=== PATIENT | male | born 1980 | race Caucasian/White ===

== ENCOUNTER 2018-02-07 18:12 | Inpatient (IN) | payer OTHER ==
[~2018-02-07] VITALS: Ht 160 cm; Wt 93.0 kg
[2018-02-07] MEDS ORDERED: SODIUM CHLORIDE 0.9% 1,000 ML IV ONE (18:27)
[2018-02-07] MEDS ORDERED: ADENOSINE 3 MG/ML 2ML VIAL IV ONE ×2 (18:30→18:31)
[2018-02-07] MEDS ORDERED: ASPIRIN 325MG TABLET PO ONE (18:30)
[2018-02-07 18:50] LABS: BASOPHILS % 0.5 % (0.0-2.0); EOSINOPHILS % 2.5 % (0.0-5.0); HEMOGLOBIN. 16.7 g/dL (14.0-18.0); LYMPHOCYTES % 47.1 % (20.0-50.0); MEAN CORPUSCULAR HEMOGLOBIN 29.5 pg (28.0-32.0); MEAN CORPUSCULAR VOLUME 86.6 fL (80.0-94.0); MONOCYTES % 8.5 % (2.0-8.0); NEUTROPHILS % 41.4 % (40.0-76.0); PLATELET 383 x1000/uL (130-400); RED BLOOD CELL COUNT 5.67 mill/uL (4.7-6.1); RED CELL DISTRIBUTION WIDTH 13.7 % (11.6-14.6)
[2018-02-07 19:01] LABS: PARTIAL THROMBOPLASTIN TIME 25.6 sec (23.4-31.0); PROTHROMBIN TIME 10.1 sec (9.4-11.6)
[2018-02-07 19:06] LABS: CHLORIDE 106 mEq/L (98-107)
[2018-02-07] MEDS ORDERED: AZITHROMYCIN 500 MG in DEXT 5% WATER 250 ML IV ONE (19:15)
[2018-02-07] MEDS ORDERED: CEFTRIAXONE 2 G PREMIX 50 ML IV ONE (19:15)
[2018-02-07 19:45] LABS: *AMPHETAMINES SCREEN URINE NEGATIVE (NEGATIVE); *BARBITURATES SCREEN URINE NEGATIVE (NEGATIVE); *BENZODIAZEPINES SCREEN URINE NEGATIVE (NEGATIVE); *COCAINE SCREEN URINE NEGATIVE (NEGATIVE); CANNABINOID URINE SCREEN NEGATIVE (NEGATIVE); METHADONE URINE SCREEN NEGATIVE (NEGATIVE); OPIATES URINE SCREEN NEGATIVE (NEGATIVE); PHENCYCLIDINE URINE SCREEN NEGATIVE (NEGATIVE)
[2018-02-07] MEDS ORDERED: AZITHROMYCIN 500 MG in DEXT 5% WATER 250 ML IV NR (20:00)
[2018-02-07] MEDS ORDERED: AZITHROMYCIN 500 MG in SODIUM CHLORIDE 0.9% 250 ML IV NR (20:00)
[2018-02-07 23:44] VITALS: BP 142/97
[2018-02-08] VITALS (7 sets, daily range): BP systolic 142–170; BP diastolic 97–115
[2018-02-08] MEDS ORDERED: IRBE300T18 PO (00:07)
[2018-02-08] MEDS ORDERED: ATEN50TA PO (00:07)
[2018-02-08] MEDS ORDERED: ALPR0.25 PO (00:07)
[2018-02-08] MEDS ORDERED: IPRATROPIUM/ALBUTEROL 0.5-3(2.5)MG/3ML NEB HHN PRN (00:45)
[2018-02-08] MEDS: LEVOFLOXACIN 500MG PREMIX 100 ML IV SCH (02:43)
[2018-02-08 06:51] LABS: BASOPHILS % 0.5 % (0.0-2.0); EOSINOPHILS % 2.8 % (0.0-5.0); HEMATOCRIT. 43.3 % (42.0-52.0); HEMOGLOBIN. 14.9 g/dL (14.0-18.0); LYMPHOCYTES % 34.3 % (20.0-50.0); MEAN CORPUSCULAR HEMOGLOBIN 29.6 pg (28.0-32.0); MEAN CORPUSCULAR VOLUME 85.9 fL (80.0-94.0); MEAN PLATELET VOLUME 7.8 fl (7.4-10.4); MONOCYTES % 6.8 % (2.0-8.0); NEUTROPHILS % 55.6 % (40.0-76.0); PLATELET 315 x1000/uL (130-400); RED BLOOD CELL COUNT 5.04 mill/uL (4.7-6.1); RED CELL DISTRIBUTION WIDTH 13.7 % (11.6-14.6)
[2018-02-08 07:23] LABS: CHLORIDE 109 mEq/L (98-107)
[2018-02-08] MEDS ORDERED: METOPROLOL TARTRATE 50MG TABLET PO SCH (09:00)
[2018-02-08] MEDS ORDERED: CLONIDINE 0.1MG TABLET PO PRN (10:45)
[2018-02-08] MEDS ORDERED: METOPROLOL TARTRATE 50MG TABLET PO NR (12:30)
[2018-02-08] MEDS: ACETAMINOPHEN 325MG TABLET PO PRN (16:37)
[2018-02-08 19:11] LABS: CLARITY URINE CLEAR (CLEAR); COLOR URINE YELLOW (YELLOW); KETONES URINE NEGATIVE (NEGATIVE); LEUKOCYTE ESTERASE URINE NEGATIVE (NEGATIVE); NITRITE URINE NEGATIVE (NEGATIVE); OCCULT BLOOD URINE NEGATIVE (NEGATIVE); PROTEIN URINE NEGATIVE (NEGATIVE); SPECIFIC GRAVITY URINE 1.012 (1.005-1.030); UROBILINOGEN URINE 0.2 E.U./dL (0.2-1.0)
[2018-02-08] MEDS ORDERED: LISINOPRIL 20MG TABLET PO SCH (21:00)
[2018-02-08] MEDS: AMLODIPINE 10MG TABLET PO SCH (21:29)
[2018-02-08] MEDS: METOPROLOL TARTRATE 100MG TABLET PO SCH (21:29)
[2018-02-08] MEDS: DILTIAZEM HCL 60MG TABLET PO SCH (21:29)
[2018-02-09] VITALS: BP 123/82
[2018-02-09] MEDS: LEVOFLOXACIN 500MG PREMIX 100 ML IV SCH (03:24)
[2018-02-09 04:00] VITALS: BP 122/65
[2018-02-09] MEDS: DILTIAZEM HCL 60MG TABLET PO SCH ×2 (05:49→13:59)
[2018-02-09 07:34] LABS: CHLORIDE 106 mEq/L (98-107)
[2018-02-09 07:35] VITALS: BP 118/81
[2018-02-09 07:42] LABS: CREATINE KINASE 65 IU/L (39-308); CREATINE KINASE MB FRACTION 0.9 ng/mL (0.5-3.6); HDL CHOLESTEROL 39 mg/dL (40-59); LDL CHOLESTEROL 88 mg/dL (5-100)
[2018-02-09 07:45] LABS: BASOPHILS % 0.4 % (0.0-2.0); EOSINOPHILS % 3.2 % (0.0-5.0); HEMATOCRIT. 46.4 % (42.0-52.0); HEMOGLOBIN. 15.5 g/dL (14.0-18.0); LYMPHOCYTES % 38.2 % (20.0-50.0); MEAN CORPUSCULAR HEMOGLOBIN 28.9 pg (28.0-32.0); MEAN CORPUSCULAR VOLUME 86.3 fL (80.0-94.0); MEAN PLATELET VOLUME 7.9 fl (7.4-10.4); MONOCYTES % 6.3 % (2.0-8.0); NEUTROPHILS % 51.9 % (40.0-76.0); PLATELET 345 x1000/uL (130-400); RED BLOOD CELL COUNT 5.38 mill/uL (4.7-6.1); RED CELL DISTRIBUTION WIDTH 13.6 % (11.6-14.6)
[2018-02-09] MEDS: AMLODIPINE 10MG TABLET PO SCH (08:36)
[2018-02-09] MEDS: METOPROLOL TARTRATE 100MG TABLET PO SCH (08:36)
[2018-02-09] MEDS: ACETAMINOPHEN 325MG TABLET PO PRN (08:42)
[2018-02-09 12:08] VITALS: BP 126/86
[2018-02-09] MEDS ORDERED: LEVO500T2 PO (13:21)
[2018-02-09 13:40] VITALS: BP 126/86
== END 2018-02-09 15:00 | disposition home or self-care (01) | DRG 871 ==
LOC: EDBEDREQ 19:47 → EDBEDREQTM 19:47 → ER 20:17 → ENRESERV 21:54 → 8WST 22:50
PROVIDERS: ADMIT Internal Medicine; ATTEND Internal Medicine
DX: A41.9 Sepsis, unspecified organism (principal); J18.9 Pneumonia, unspecified organism; I47.1 Supraventricular tachycardia; E66.9 Obesity, unspecified; F41.9 Anxiety disorder, unspecified; I10 Essential (primary) hypertension; Z79.899 Other long term (current) drug therapy; Z88.8 Allergy status to other drugs, medicaments and biological substances; Z68.36 Body mass index [BMI] 36.0-36.9, adult
CPT/HCPCS: 36415; 71045; 80048; 80053; 80061; 80305; 81003; 82550; 82553; 83036; 83605; 83690; 83735; 83880; 84443; 84484; 85025; 85379; 85610; 85730; 87040; 87086; 87804; 93005; 93306; 96361; 96374; 96375; 99291; J0153; J0456; J0696; J1956; J7030; J7050; J7060